=== PATIENT | male | born 1945 | race Caucasian/White ===

== ENCOUNTER 2017-06-24 02:18 | Emergency (ER) | payer MEDICARE, BC ==
[~2017-06-24] VITALS: Ht 182.9 cm; Wt 110.0 kg
[~2017-06-24 02:18] MED LIST: ASPI81TA82 PO; LORA1TAB PO; LOSA50TA PO; SOTA80TA PO
[2017-06-24 02:20] VITALS: BP 153/80; PULSE 80; RESP 18; TEMP 98.5; O2SAT 96
[2017-06-24 03:48] VITALS: BP 132/88; PULSE 84; RESP 20; O2SAT 96
[2017-06-24] MEDS ORDERED: SOTA80TA PO (03:56)
[2017-06-24] MEDS ORDERED: LORA1TAB12 PO (03:56)
[2017-06-24] MEDS ORDERED: WARF-20 PO (03:56)
[2017-06-24] MEDS ORDERED: SOTA120T PO (03:56)
[2017-06-24] MEDS ORDERED: WARF4TAB51 PO (03:56)
[2017-06-24] MEDS ORDERED: LOSA50TA PO (03:56)
[2017-06-24] MEDS ORDERED: RESP: ALBUTEROL 2.5 MG/IPRATROPIUM 0.5 MG NEB (SCH) INH ONE (04:00)
[2017-06-24] MEDS ORDERED: SODIUM CHLORIDE 0.9% FLUSH 10 ML FLUSH IVF PRN (04:00)
--- NOTE | 2017-06-24 04:24 | PD ---
HPI Chief Complaint: Cold / Flu Symptoms Time Seen by Provider: 04:00 Travel History International Travel<30 days: No Contact w/Intl Traveler<30days: No Traveled to known affect area: No History of Present Illness HPI 72-year-old male presents to the emergency department for complaint of cough that interferes with sleep. Patient states over the weekend he developed a respiratory illness with cough productive of yellow sputum and fever. Cough has persisted although sputum production has dissipated and patient is no longer febrile. Patient denies chest pain orthopnea or PND. Patient denies lower extremity pain or swelling. Patient has history of dilated cardiomyopathy with pacemaker and takes Coumadin. Patient states she has not missed any of his medications. Patient also has history of COPD and bronchitis. Patient states he does not use his nebulized medication or rescue inhaler as it causes him to feel funny but has used bedside vaporizer without symptom relief. Patient presents now due to persistent cough that interferes with his sleep. PFSH Past Medical History Narrative Medical Pacemaker defibrillator, cardiomyopathy, COPD, atrial fibrillation, colon cancer , hypertension, no tobacco use no alcohol use; nursing notes reviewed Atrial Fibrillation: Yes Cancer: Yes (COLON) Cardiac Catheterization: Yes (2006) Cardiomyopathy: Yes Cardiovascular Problems: Yes ([employer] PM/AICD) COPD: Yes Diminished Hearing: No Gastrointestinal Disorders: Yes (HX OF COLON CA) Hiatal Hernia: No Hypertension: Yes Inguinal Hernia: Yes Respiratory: Yes (COPD) Immunizations Current: Yes PNEUMOCCOCAL Vaccine (Year): 2009 Past Surgical History Abdominal Surgery: Yes (UMBILICAL HERNIA REPAIR, RIGHT INGUINAL HERNAI REPAIR, CHOLECYSTECTOMY) Cholecystectomy: Yes Pacemaker: Yes (ICD, [id number]) Social History Alcohol Use: No Tobacco Use: No Substance Use: No Allergies-Medications (Allergen,Severity, Reaction): Coded Allergies: No Known Allergies (Verified , 09/25/14) Reported Meds & Prescriptions Reported Meds & Active Scripts Active Medrol Dosepak (Methylprednisolone) 4 Mg Dspk 4 Mg PO DIRECTED Per Pharmacist direction Keflex (Cephalexin) 500 Mg Capsule 500 Mg PO Q6H 7 Days Duoneb (Ipratropium-Albuterol Neb) 0.5-2.5 Mg/3 Ml Neb 1 Nebule INH Q4-6H Reported Sotalol (Sotalol HCl) 80 Mg Tab 160 Mg PO DAILY Sotalol (Sotalol HCl) 120 Mg Tab 120 Mg PO BID Losartan (Losartan Potassium) 50 Mg Tab 50 Mg PO DAILY Warfarin 4 Mg Tab 4 Mg PO DAILY Warfarin 2 Mg Tab 2 Mg PO DAILY Lorazepam 1 Mg Tab 1 Mg PO BID PRN Review of Systems Except as stated in HPI: all other systems reviewed are Neg Physical Exam Narrative GENERAL: Well-developed well-nourished male in mild to moderate respiratory distress with expiratory wheezing no stridor or hoarseness SKIN: Warm and dry. HEAD: Normocephalic. EYES: No scleral icterus. No injection or drainage. NECK: Supple, trachea midline. No JVD or lymphadenopathy. CARDIOVASCULAR: Regular rate and rhythm without murmurs, gallops, or rubs. RESPIRATORY: Breath sounds equal bilaterally with expiratory wheeze bilaterally. No accessory muscle use. GASTROINTESTINAL: Abdomen soft, non-tender, nondistended. MUSCULOSKELETAL: No cyanosis, or edema. BACK: Nontender without obvious deformity. No CVA tenderness. Data Data Last Documented VS Vital Signs Date Time Temp Pulse Resp B/P (MAP) Pulse Ox O2 Delivery O2 Flow Rate FiO2 06/24/17 05:55 06/24/17 03:48 84 20 96 Room Air 06/24/17 02:20 98.5 Orders Orders Complete Blood Count With Diff (06/24/17 04:00) Basic Metabolic Panel (Bmp) (06/24/17 04:00) B-Type Natriuretic Peptide (06/24/17 04:00) Act Partial Throm Time (Ptt) (06/24/17 04:00) Prothrombin Time / Inr (Pt) (06/24/17 04:00) Magnesium (Mg) (06/24/17 04:00) Ckmb (Isoenzyme) Profile (06/24/17 04:00) Troponin I (06/24/17 04:00) Blood Culture (06/24/17 04:00) Iv Access Insert/Monitor (06/24/17 04:00) Electrocardiogram (06/24/17 04:00) Ecg Monitoring (06/24/17 04:00) Oximetry (06/24/17 04:00) Oxygen Administration (06/24/17 04:00) Chest, Single Ap (06/24/17 04:00) Sodium Chloride 0.9% Flush (Ns Flush) (06/24/17 04:00) Albuterol-Ipratropium Neb (Duoneb Neb) (06/24/17 04:00) Methylprednisolone So Succ Inj (Solumedr (06/24/17 04:30) CKMB (06/24/17 04:00) CKMB% (06/24/17 04:00) Ed Discharge Order (06/24/17 05:43) Labs Laboratory Tests Test 06/24/17 04:00 White Blood Count 5.4 TH/MM3 Red Blood Count 4.98 MIL/MM3 Hemoglobin 15.9 GM/DL Hematocrit 45.8 % Mean Corpuscular Volume 92.1 FL Mean Corpuscular Hemoglobin 31.9 PG Mean Corpuscular Hemoglobin Concent 34.6 % Red Cell Distribution Width 14.7 % Platelet Count 191 TH/MM3 Mean Platelet Volume 7.8 FL Neutrophils (%) (Auto) 58.7 % Lymphocytes (%) (Auto) 20.7 % Monocytes (%) (Auto) 19.3 % Eosinophils (%) (Auto) 0.8 % Basophils (%) (Auto) 0.5 % Neutrophils # (Auto) 3.1 TH/MM3 Lymphocytes # (Auto) 1.1 TH/MM3 Monocytes # (Auto) 1.0 TH/MM3 Eosinophils # (Auto) 0.0 TH/MM3 Basophils # (Auto) 0.0 TH/MM3 CBC Comment DIFF FINAL Differential Comment Prothrombin Time 22.8 SEC Prothromb Time International Ratio 2.3 RATIO Activated Partial Thromboplast Time 36.9 SEC Blood Urea Nitrogen 17 MG/DL Creatinine 1.16 MG/DL Random Glucose 100 MG/DL Calcium Level 9.0 MG/DL Magnesium Level 2.1 MG/DL Sodium Level 140 MEQ/L Potassium Level 3.5 MEQ/L Chloride Level 103 MEQ/L Carbon Dioxide Level 31.6 MEQ/L Anion Gap 5 MEQ/L Estimat Glomerular Filtration Rate 62 ML/MIN Total Creatine Kinase 539 U/L Creatine Kinase MB 2.5 NG/ML Creatine Kinase MB % 0.5 % Troponin I 0.04 NG/ML B-Type Natriuretic Peptide 131 PG/ML MDM Medical Decision Making Medical Screen Exam Complete: Yes Emergency Medical Condition: Yes Medical Record Reviewed: Yes Interpretation(s) EKG atrial paced rhythm rate 75 with frequent unifocal PVCs Differential Diagnosis Dyspnea exacerbation COPD CHF ACS DE electrolyte disturbance pneumonia effusion PE Narrative Course Patient placed on ekg monitor tech with continuous pulse oximetry IV access obtained specimens collected and sent for resulting patient administered DuoNeb updraft 1 Diagnosis Primary Impression: COPD exacerbation Additional Impression: Bronchitis Referrals: Primary Care Physician 1 day Patient Instructions: General Instructions Additional Instructions: Increase fluid hydration Follow-up with your primary care provider Return to the emergency department for any concerns or change in condition Complete course of antibiotic as prescribed Use nebulized treatments every 4 hours as needed for wheezing or shortness of breath Complete course of steroid Take acetaminophen/Tylenol as needed for fever 100.4F or greater Med/Other Pt SpecificInfo: Prescription(s) given Scripts Methylprednisolone Dosepak (Medrol Dosepak) 4 Mg Dspk 4 MG PO DIRECTED, #1 DSPK 0 Refills Per Pharmacist direction Prov: Sepideh Lam MD 06/24/17 Cephalexin (Keflex) 500 Mg Capsule 500 MG PO Q6H for Infection for 7 Days, #28 CAP 0 Refills Prov: Sepideh Lam MD 06/24/17 Ipratropium-Albuterol Neb (Duoneb) 0.5-2.5 Mg/3 Ml Neb 1 NEBULE INH Q4-6H for SHORTNESS OF BREATH, #120 NEBULE 0 Refills Prov: Sepideh Lam MD 06/24/17 Disposition: 01 DISCHARGE HOME Condition: Stable Sepideh Lam MD Jun 24, 2017 04:24
[2017-06-24 04:26] LABS: AUTOMATED NEUTROPHIL # 3.1 TH/MM3 (1.8-7.7); BASOPHIL % 0.5 % (0.0-2.0); EOSINOPHIL % 0.8 % (0.0-4.0); HEMATOCRIT 45.8 % (39.0-51.0); HEMOGLOBIN 15.9 GM/DL (13.0-17.0); LYMPH % 20.7 % (9.0-44.0); LYMPHOCYTE # 1.1 TH/MM3 (1.0-4.8); MEAN CELL VOLUME 92.1 FL (80.0-100.0); MEAN CORPUSCULAR HEMOGLOBIN 31.9 PG (27.0-34.0); MEAN CORPUSCULAR HGB CONC 34.6 % (32.0-36.0); MEAN PLATELET VOLUME 7.8 FL (7.0-11.0); MONO % 19.3 % (0.0-8.0); NEUT % 58.7 % (16.0-70.0); PLATELET COUNT 191 TH/MM3 (150-450); RED BLOOD COUNT 4.98 MIL/MM3 (4.50-5.90); RED CELL DISTRIBUTION WIDTH 14.7 % (11.6-17.2); WHITE BLOOD COUNT 5.4 TH/MM3 (4.0-11.0)
[2017-06-24] MEDS ORDERED: methylPREDNISolone SOD SUCC 125 MG/2 ML VIAL IV PUSH ONE (04:30)
[2017-06-24 04:34] LABS: INTERNATIONAL NORMALIZED RATIO 2.3 RATIO; PROTHROMBIN TIME - PATIENT 22.8 SEC (9.8-11.6)
[2017-06-24 04:36] LABS: BICARBONATE 31.6 MEQ/L (21.0-32.0); CREATININE 1.16 MG/DL (0.60-1.30); MAGNESIUM 2.1 MG/DL (1.5-2.5)
--- NOTE | 2017-06-24 04:38 | RADRPT ---
EXAM DATE/TIME: 06/24/2017 04:18 [facility] COMPARISON: No previous studies available for comparison. INDICATIONS : Short of breath. MEDICAL HISTORY : None. SURGICAL HISTORY : Pacemaker. ENCOUNTER: Initial ACUITY: 1 day PAIN SCORE: 0/10 LOCATION: Bilateral chest FINDINGS: Portable AP view of the chest demonstrates a normal-sized cardiac silhouette. No effusion, consolidat ion, or pneumothorax is visualized. The bones and soft tissues demonstrate no acute abnormality. Left chest wall cardiac pacing device has AICD is present. EKG lines overlie the patient. CONCLUSION: No acute cardiopulmonary abnormality is identified. Ron Qiu MD on June 24, 2017 at 4:36 Board Certified Radiologist. This report was verified electronically.
[2017-06-24 04:40] LABS: TROPONIN I 0.04 NG/ML (0.02-0.05)
[2017-06-24] MEDS ORDERED: MEDR4PAK PO (05:42)
[2017-06-24] MEDS ORDERED: IPRASOL INH (05:42)
[2017-06-24] MEDS ORDERED: CEPH-460 PO (05:42)
--- NOTE | 2017-06-24 18:32 | EKG ---
Date Performed: 06/24/2017 Time Performed: 04:16:34 PTAGE: 72 years EKG: ELECTRONIC ATRIAL PACEMAKER, FREQUENT PVC SEPTAL MYOCARDIAL INFARCTION T-WAVE ABNORMALITY, CONSIDER LATERAL ISCHEMIA ABNORMAL ECG PREVIOUS TRACING : 07/16/2014 09.46 Compared to previous tracing, atrial pacing is now evident. DOCTOR: Isidoro Hernández Interpretating Date/Time 06/24/2017 18:30:01
== END 2017-06-24 05:59 | disposition home or self-care (01) ==
LOC: NEPC 02:18
DX: J44.1 Chronic obstructive pulmonary disease with (acute) exacerbation (principal); R94.31 Abnormal electrocardiogram [ECG] [EKG]; R06.03 Acute respiratory distress; I42.9 Cardiomyopathy, unspecified; I48.91 Unspecified atrial fibrillation; I10 Essential (primary) hypertension; Z85.038 Personal history of other malignant neoplasm of large intestine; Z95.810 Presence of automatic (implantable) cardiac defibrillator
CPT/HCPCS: 71045; 80048; 82550; 82552; 83735; 83880; 84484; 85025; 85610; 85730; 87040; 93005; 94664; 96374; 99285; J2930